=== PATIENT | female | born 2005 | race Caucasian/White ===

== ENCOUNTER 2025-08-04 19:39 | Emergency (ER) | payer BC, SELFPAY ==
[2025-08-04 19:49] VITALS: BP 101/69
[2025-08-04 21:00] VITALS: BMI 17.5
[2025-08-04 21:27] VITALS: BP 104/58
--- NOTE | 2025-08-04 22:13 | ED.SKININJ ---
HPI-Injury
General
Chief Complaint: Skin Problem
Source: patient
Exam Limitations: none
Time Seen by Provider: 08/04/25 21:20
Nursing documentation reviewed up to this point in time: agreed with
History of Present Illness-Injury
Is this injury a work related problem?: No
Is pt an associate of [facility]/[place]?: No
Initial Injury comments:
Patient to ED wtih complaint of itchy rash to bilateral forearms and bilateral thighs. Symptoms started approx 2 weeks ago. Evaluated [facility] and placed on keflex and mupiricin for imeptigo. SHe states there has been no
improvement. Denies fever/chills. BRought to ED by mother for eval
Past History
Past History
ED Past Medical History: None
ED Past Surgical History: None
Review of Systems
Review of Systems
Allergies reviewed?: Yes
All Other Systems: ROS reviewed and negative except as documented in HPI and ROS
Constitutional: Reports no symptoms
EENT: Reports no symptoms
Respiratory: Reports no symptoms
Cardiac: Reports no symptoms
ABD/GI: Reports no symptoms
Musculoskeletal: Reports no symptoms
Skin: Reports other (itchy vesicular rash to bilateral forearms and bilateral thighs.)
Neurological: Reports no symptoms
Psychiatric: Reports no symptoms
Phy Exam
General Physical Exam
General Presentation: well appearing and no apparent distress
General age: appears stated age
General Skin: warm and dry
General Habitus: normal
General Mental: alert
Musculoskeletal Exam
Musculoskeletal Exam: full ROM and neuro vasc intact
Skin Exam
Skin Exam: normal color, warm/dry and other (vesicular rash to bilateral forearms and bilateral thighs consistent with contact dermatitis.)
Psychiatric Exam
Psychiatric Exam: normal mood/affect
Course
Orders/Labs/Results
Orders:
Orders
08/04/25 21:49
Dexamethasone Pf [Decadron] 10 mg PO NOW STA
Vital Signs
Initial and Last Documented VS:
Initial Vital Signs
Temp Pulse Resp BP Pulse Ox
98.2 F 62 18 101/69 97
08/04/25 19:49 08/04/25 19:49 08/04/25 19:49 08/04/25 19:49 08/04/25 19:49
Last Documented Vital Signs
Temp Pulse Resp BP Pulse Ox
98.8 F 68 18 104/58 100
08/04/25 21:27 08/04/25 21:27 08/04/25 21:27 08/04/25 21:27 08/04/25 22:13
*Radiology
Radiology exam reviewed: radiology read reviewed
*Pulse Oximetry
SaO2: 100
Oxygen Mode of Delivery: Room air
Patient hypoxic: no
*Critical Care Note
Total Time (30-74mins, 75-104mins- exclusive of procedures): Not Applicable
Update Note
Update Note:
Patient to ED for eval of rahs to bilateral forearms, bilateral thighs. TOld she had impetigo and placed on keflex and mupiricin without improvement. Rash is red, vesicular, linear consistent with contact dermatitis. There is no discharge. Report
itching to sites. Given dose of decadron in ED and placedo n prednisone taper. SHe is discharged home, will follow uyp with PCP.
ED Attending Note
-
Portions of this chart may have been created with voice recognition software.� Occasional wrong word or��sound alike� substitutions may have occurred due to the inherent limitations of voice recognition software.
Discharge Plan
Departure
Patient Disposition: Home (Routine Discharge)
Date of Disposition: 08/04/25
Time of Disposition: 21:50
Patient with high blood pressure during this ER visit?: No
Condition: Good
Covid-19: Not Applicable
Discharge Problem:
Contact dermatitis
Instructions: Contact dermatitis
Prescriptions:
New
prednisone 10 mg Tablet
See Rx Instructions .ROUTE .COMPLEX Qty: 30 0RF
Rx Instructions:
Take By Mouth:
40 mg daily x3 days, 30 mg daily x3 days,
20 mg daily x3 days, 10 mg daily x3 days.
No Action
sulfacetamide sodium 1 DROP drops
1 drp OPHTHALMIC Q4 Qty: 1 0RF
Activity Restrictions/Additional Instructions:
Follow up with your family doctor
Interventions
Interventions:
*Risk Screen - Suicide Last Done: 08/04/25 19:49
*General Assessment Last Done: 08/04/25 20:59
*Neglect/Abuse Screening Last Done: 08/04/25 19:49
*ED- Fall Risk Assessment Last Done: 08/04/25 20:59
*ED COVID-19 Vaccine History Last Done: 08/04/25 20:59
*Nursing Disposition Last Done: 08/04/25 22:30
ED-Skin Assessment Last Done: 08/04/25 21:15
Discharge Date and Time
Discharge Date/Time: 08/04/25 22:30
Print Language: THAI
[2025-08-04] MEDS: DECADRON 10 MG PO (22:24)
== END 2025-08-04 22:30 | disposition home or self-care (01) ==
LOC: EMR 19:39
PROVIDERS: EMERGENCY PHYSICIAN Emergency Medicine; FAMILY PHYSICIAN Internal Medicine
DX: L25.9 Unspecified contact dermatitis, unspecified cause (principal)
CPT/HCPCS: 99283